=== PATIENT | female | born 1990 | race Caucasian/White ===

== ENCOUNTER → 2019-08-25 09:32 | Outpatient (CLI) | payer OTHER, MEDICAID, SELFPAY | PROVIDERS: Visit Provider Obstetrics & Gynecology | DX: Z34.01 Encounter for supervision of normal first pregnancy, first trimester (principal); Z3A.01 Less than 8 weeks gestation of pregnancy | CPT/HCPCS: 87086 ==

== ENCOUNTER → 2019-08-25 10:33 | Outpatient (CLI) | payer OTHER, MEDICAID, SELFPAY ==
[2019-08-25 11:46] LABS: Add Manual Diff / Slide Review NO; Basophils Absolute Auto 0 /uL (0-100); Basophils Percent Auto 0.5 % (0-2); Eosinophils Absolute Auto 0 /uL (0-450); Eosinophils Percent Auto 0.6 % (2-4); Hematocrit 40.1 % (36-46); Lymphocytes Absolute Auto 1500 /uL (1100-4500); Lymphocytes Percent Auto 21.7 % (25-40); Mean Corpuscular HGB Conc 34.9 % (30-36); Mean Corpuscular Hemoglobin 31.7 PG (26-34); Mean Corpuscular Volume 91.1 fL (80-100); Monocytes Absolute Auto 500 /uL (0-900); Monocytes Percent Auto 7.6 % (3-14); Neutrophils Absolute Auto 4900 /uL (1500-7000); Neutrophils Percent Auto 69.6 % (50-75); Platelet Count 232 X10^3/uL (150-400); Red Cell Distribution Width 13.1 % (11.6-14.8); White Blood Cell Count 7.1 X10^3/uL (4.5-11.0)
[2019-08-25 11:55] LABS: Appearance Urine UA CLEAR; Bilirubin Urine UA NEGATIVE (NEGATIVE); Color Urine UA YELLOW; Glucose Urine UA NEGATIVE (Negative); Ketones Urine UA NEGATIVE (NEGATIVE); Leukocyte Esterase Urine UA NEGATIVE (NEGATIVE); Nitrite Urine UA NEGATIVE (Negative); Occult Blood Urine UA TRACE-LYSED (Negative); Protein Urine UA NEGATIVE (Negative); Urobilinogen Urine UA 0.2 E.U./dL (0.2)
[2019-08-25 13:14] LABS: Urine N gonorrhoeae NOT DETECTED
[2019-08-25 13:15] LABS: Urine Chlamydia NOT DETECTED
[2019-08-26 07:08] LABS: RPR Screen Non Reactive (Non Reactive)
[2019-08-26 08:08] LABS: Varicella IgG Antibody 800 index (Immune >165)
[2019-08-26 21:12] LABS: Hepatitis B Surface Antigen NEGATIVE s/c (NEGATIVE); Rubella Antibody IgG 38.5 IU/mL (>15)
[2019-08-26 21:24] LABS: HIV 1 & 2 Ab/Ag 4th Gen Combo NEGATIVE (NEGATIVE); Hep C Virus Ab w/Reflex Quant NEGATIVE s/c (NEGATIVE)
== END ==
PROVIDERS: Referring Provider Obstetrics & Gynecology; Visit Provider Obstetrics & Gynecology
DX: Z34.01 Encounter for supervision of normal first pregnancy, first trimester (principal); Z3A.01 Less than 8 weeks gestation of pregnancy; Z11.3 Encounter for screening for infections with a predominantly sexual mode of transmission
CPT/HCPCS: 36415; 80055; 81003; 86787; 86803; 86850; 86900; 86901; 87077; 87086; 87389; 87491; 87591

== ENCOUNTER → 2019-10-20 15:32 | Outpatient (CLI) | payer OTHER, MEDICAID, SELFPAY ==
[2019-10-23 09:22] LABS: AFP, Serum 30.4 ng/mL (.); Calc Gestational Age Ultrasound (.); Estriol, Free 0.87 ng/mL (.); Inhibin A, Dimeric 188.43 pg/mL (.); Inhibin A, MoM 1.09 (.); Maternal Ethnicity Caucasian (.); Maternal Weight 162 lbs (.); Number of Fetuses No (.); OSBR Risk 1 IN 8647 (.); Results Report (.); Test Results *Screen Negative* (.); hCG, MoM 0.71 (.); hCG, Serum 38481 mIU/mL (.)
== END ==
PROVIDERS: PCP Nurse Practitioner; Referring Provider Obstetrics & Gynecology; Visit Provider Obstetrics & Gynecology
DX: Z34.02 Encounter for supervision of normal first pregnancy, second trimester (principal); Z36.0 Encounter for antenatal screening for chromosomal anomalies; Z3A.15 15 weeks gestation of pregnancy
CPT/HCPCS: 36415; 82105; 82677; 84702; 86336

== ENCOUNTER → 2019-12-01 14:10 | Outpatient (CLI) | payer OTHER, MEDICAID, SELFPAY ==
--- NOTE | 2019-12-01 14:12 | DI.US.S_ITS ---
PROCEDURE: US OB >= 14 WEEKS FETUS INDICATIONS: ANATOMY OUTSIDE/PRIOR DATING DATA: Last menstrual period (LMP): 07/06/2019 . LMP-based estimated date of delivery (MARITZA): 04/11/2020 . First dating scan (date and location): 08/25/2019 . Estimated date of delivery (MARITZA) from first dating scan: 04/13/2020 . TECHNIQUE: Real-time scanning was performed of the fetus, with image documentation and biometric measurements. COMPARISON: [facility], , OB <= 14 WEEKS FETUS, 09/22/2019, 16:18. [facility], , OB <= 14 WEEKS FETUS, 08/25/2019, 9:48. [facility], , OB >= 14 WEEKS FETUS, 11/17/2019, 16:28. FINDINGS: General: A single living intrauterine gestation is present. Presentation: Transverse. Placenta: Placental position is anterior, without previa. Amniotic fluid index: 14.2 cm, normal range is 5-24 cm. Largest pocket 4.3 heart rate: 168 beats per minute. Maternal cervical canal: 5.8 cm long. biometrics: Biparietal diameter: 4.9 cm 20 weeks 6 days Head circumference: 17.7 cm 20 weeks 1 day Abdominal circumference: 15.6 cm 20 weeks 5 days Femur length: 3.2 cm 20 weeks 0 days Estimated gestational age from initial scan: 20 weeks 6 days Composite gestational age from present scan: 20 weeks 3 days Estimated weight and percentile: 351 g 20 second percentile Measurement variability for biometric dating: +/- 7 days from 14 weeks to 15 weeks 6 days gestation, +/- 10 days from 16 weeks to 21 weeks 6 days gestation, +/- 2 weeks from 22 weeks to 27 weeks 6 days gestation, +/- 3 weeks for 28 weeks gestation or later. weight reference: 4500 g or EFW >90/95% is considered macrosomia or large for gestational age. EFW <10% is small for gestational age. EFW 5% or less is considered intra-uterine growth restriction. Anatomic survey: Neuro: Ventricles are non-dilated at less than 10 mm. Cisterna magna is normal at 3-11 mm. Cerebellum is normal in size and morphology. Nuchal skin fold: Normal at less than 6 mm between 14-21 weeks gestational age. Face: Nose and lips, facial profile are normal. Spine: No evidence for spina bifida. Heart: 4-chambered heart is present, with normal ventricular outflow tracts. Intracardiac echogenic focus is noted within the left ventricle. Diaphragm: Diaphragm is intact. Stomach: Left-sided stomach is present. Kidneys: No hydronephrosis. Normal is less than 5 mm in 2nd trimester, less than 7 mm in 3rd trimester. Cord: 3-vessel cord has orthotopic insertion. Bladder: Normal in size. Extremities: All 4 extremities identified. IMPRESSION: 1. Single live into with ultrasound gestational age today of 20 weeks 3 days compared to 20 weeks 6 days from initial ultrasound. Ultrasound MARITZA is unchanged 04/13/2020. 2. Intracardiac echogenic focus. This is overall nonspecific. Recommend interval imaging follow-up as well as denoted testing if clinically appropriate. Dictated by: Emmy Marie M.D. on 12/02/2019 at 14:55 Approved by: Emmy Marie M.D. on 12/02/2019 at 15:14
== END ==
PROVIDERS: PCP Nurse Practitioner; Referring Provider Obstetrics & Gynecology; Visit Provider Obstetrics & Gynecology
DX: Z34.02 Encounter for supervision of normal first pregnancy, second trimester (principal); Z3A.20 20 weeks gestation of pregnancy
CPT/HCPCS: 76811

== ENCOUNTER → 2020-01-05 10:01 | Outpatient (CLI) | payer OTHER, MEDICAID, SELFPAY ==
[2020-01-05 12:12] LABS: Hematocrit 37.2 % (36-46); Hemoglobin 13.1 g/dL (12.0-16.0)
[2020-01-05 12:57] LABS: GTT (PREG) 1 Hour PP 50gm Dose 127 mg/dL (76-139)
[2020-01-05 13:42] LABS: Vitamin B12 Reflex MMA if <400 252 pg/mL (239-931)
[2020-01-08 00:31] LABS: Methylmalonic Acid,Serum 53 nmol/L (0-378)
== END ==
PROVIDERS: PCP Nurse Practitioner; Referring Provider Obstetrics & Gynecology; Visit Provider Obstetrics & Gynecology
DX: Z34.02 Encounter for supervision of normal first pregnancy, second trimester (principal); Z3A.26 26 weeks gestation of pregnancy
CPT/HCPCS: 36415; 82607; 82950; 83921; 85014; 85018

== ENCOUNTER 2020-03-02 11:03 | Outpatient (CLI) | payer OTHER, MEDICAID, SELFPAY ==
[2020-03-02 11:42] LABS: Add Manual Diff / Slide Review NO; Basophils Absolute Auto 100 /uL (0-100); Basophils Percent Auto 0.7 % (0-2); Eosinophils Absolute Auto 200 /uL (0-450); Eosinophils Percent Auto 1.8 % (2-4); Hematocrit 37.7 % (36-46); Hemoglobin 12.9 g/dL (12.0-16.0); Lymphocytes Absolute Auto 2000 /uL (1100-4500); Lymphocytes Percent Auto 19.9 % (25-40); Mean Corpuscular HGB Conc 34.1 % (30-36); Monocytes Absolute Auto 500 /uL (0-900); Monocytes Percent Auto 5.5 % (3-14); Neutrophils Absolute Auto 7100 /uL (1500-7000); Neutrophils Percent Auto 72.1 % (50-75); Platelet Count 209 X10^3/uL (150-400); Red Blood Cell Count 4.14 X10^6/uL (4.0-5.2); Red Cell Distribution Width 12.8 % (11.6-14.8); White Blood Cell Count 9.8 X10^3/uL (4.5-11.0)
[2020-03-02 11:54] LABS: Aspartate Aminotransferase 21 IU/L (14-36); BUN Creatinine Ratio 13.5 (6-22); Blood Urea Nitrogen 7 mg/dL (7-17); Estimated Glomerular Filt Rate > 60.0 mL/min (>60); Uric Acid 4.7 mg/dL (2.5-6.2)
== END 2020-03-02 12:44 | disposition home or self-care (01) ==
LOC: LABOR 12:37 → OB 03-04 08:41
PROVIDERS: PCP Nurse Practitioner; Referring Provider Obstetrics & Gynecology; Visit Provider Obstetrics & Gynecology
DX: O13.3 Gestational [pregnancy-induced] hypertension without significant proteinuria, third trimester (principal); Z3A.34 34 weeks gestation of pregnancy
CPT/HCPCS: 36415; 59025; 59050; 84450; 84550; 85025; G0378; G0379

== ENCOUNTER → 2020-03-10 14:00 | Outpatient (CLI) | payer OTHER, MEDICAID, SELFPAY ==
[2020-03-11 11:02] LABS: Strep Grp B PCR NEG for Grp B Strep
== END ==
PROVIDERS: PCP Nurse Practitioner; Visit Provider Obstetrics & Gynecology
DX: Z34.03 Encounter for supervision of normal first pregnancy, third trimester (principal); Z3A.35 35 weeks gestation of pregnancy
CPT/HCPCS: 87653

== ENCOUNTER 2020-03-10 14:18 | Outpatient (CLI) | payer OTHER, MEDICAID, SELFPAY | END 2020-03-10 15:26 | disposition home or self-care (01) | LOC: LABOR 14:33 → OB 03-11 07:43 | PROVIDERS: PCP Nurse Practitioner; Referring Provider Obstetrics & Gynecology; Visit Provider Obstetrics & Gynecology | DX: O26.893 Other specified pregnancy related conditions, third trimester (principal); R03.0 Elevated blood-pressure reading, without diagnosis of hypertension; Z3A.35 35 weeks gestation of pregnancy | CPT/HCPCS: 59025; 87653; G0378; G0379 ==

== ENCOUNTER 2020-03-17 13:08 | Outpatient (CLI) | payer OTHER, MEDICAID, SELFPAY ==
--- NOTE | 2020-03-18 14:00 | CM.DPNOTE ---
Faxed clinicals to [facility] on 03/18/20 and received fax confirmation. Liliana Hamilton CM Asst.
== END 2020-03-17 14:11 | disposition home or self-care (01) ==
LOC: LABOR 14:06 → OB 03-18 11:54
PROVIDERS: PCP Nurse Practitioner; Referring Provider Obstetrics & Gynecology; Visit Provider Obstetrics & Gynecology
DX: O13.3 Gestational [pregnancy-induced] hypertension without significant proteinuria, third trimester (principal); Z3A.36 36 weeks gestation of pregnancy
CPT/HCPCS: 59025; G0378; G0379

== ENCOUNTER 2020-03-24 12:13 | Outpatient (CLI) | payer OTHER, MEDICAID, SELFPAY ==
--- NOTE | 2020-03-28 10:28 | P.TNLD_ITS ---
Visit Information Visit Information Date of evaluation: 03/28/20 Primary OB Provider: Ofelia Estrella On-call OB Provider: Nakia Porter Reason for Evaluation: Yes non-stress test Comments/Additional reasons for admission: 29YO G1 @ 38wks here for scheduled NST for GHTN on labetalol 100mg BID. +FM. No cramping, VB or LOF. Vital Signs Vital Signs: Serial BPs: 132/95, 129/88, 126/86 HR: 85bpm T: 97.7F Temporal PFSH Medical History Anxiety Depression Hyperemesis gravidarum Kidney stones Nausea Ovarian cyst Scoliosis Stomach pain Family History Mother Family estrangement No known health problems Depression Bipolar 1 disorder Mental health disorder Father Obesity Grandfather No known health problems Family estrangement Abusive behavior Grandmother No known health problems Family estrangement Grandfather Diabetes mellitus Hyperlipidemia Hypertension Myocardial infarction Obesity Heart valve replaced Grandmother Leukemia, acute Family/Other Cancer Breast cancer Brother Extra toe Social History marital status: household members: spouse pets and animals: Yes (X 2 dogs) education level: vocational occupational status: employed current occupational exposures/hazards: Yes Previous occupational history: Hairdresser special kamran needs: No Smoking Status: Never smoker second hand exposure: No alcohol intake: former substance use type: does not use and marijuana Review of Systems Review of Systems ROS: Yes All systems reviewed with the patient and are negative except as otherwise documented Exam Vital Signs (past 8 hours): see above Presentation: vertex Evaluation Evaluation Baseline heart rate: 135 Variability: Moderate (11-25) monitor accelerations: Present monitor decelerations: Absent Status: Category l Comments: CE deferred Diagnosis, Plan/Disposition Final Diagnosis (1) Gestational hypertension: Status: Acute Problem details: BP stable on labetalol w/ medical IOL tentatively moved up from 03/31/[address] [facility]. Will confirm w/ and then Pt to arrive at 7pm for cervical ripening.
== END 2020-03-24 13:08 | disposition home or self-care (01) ==
LOC: LABOR 12:52 → OB 03-25 08:50
PROVIDERS: PCP Nurse Practitioner; Referring Provider Obstetrics & Gynecology; Visit Provider Obstetrics & Gynecology
DX: Z34.03 Encounter for supervision of normal first pregnancy, third trimester (principal); Z3A.37 37 weeks gestation of pregnancy
CPT/HCPCS: 59025; G0378; G0379

== ENCOUNTER 2020-03-28 10:23 | Outpatient (CLI) | payer OTHER, MEDICAID, SELFPAY | END 2020-03-28 10:29 | disposition home or self-care (01) | LOC: LABOR 10:26 → OB 03-30 07:48 | PROVIDERS: PCP Nurse Practitioner; Referring Provider Nurse Practitioner Obstetrics & Gynecology; Visit Provider Nurse Practitioner Obstetrics & Gynecology | DX: O13.3 Gestational [pregnancy-induced] hypertension without significant proteinuria, third trimester (principal); Z3A.37 37 weeks gestation of pregnancy | CPT/HCPCS: 59025; G0378; G0379 ==

== ENCOUNTER 2020-03-29 18:08 | Inpatient (IN) | payer OTHER, MEDICAID, SELFPAY ==
[2020-03-29 18:44] VITALS: BP 134/99
[2020-03-29] MEDS: DINOPROSTONE VAG (CERVIDIL) 10 MG VAG (19:31)
[2020-03-29 19:46] LABS: Add Manual Diff / Slide Review NO; Basophils Absolute Auto 100 /uL (0-100); Eosinophils Absolute Auto 200 /uL (0-450); Eosinophils Percent Auto 1.7 % (2-4); Hematocrit 35.7 % (36-46); Hemoglobin 12.2 g/dL (12.0-16.0); Lymphocytes Absolute Auto 2500 /uL (1100-4500); Mean Corpuscular Volume 91.2 fL (80-100); Monocytes Absolute Auto 500 /uL (0-900); Monocytes Percent Auto 4.8 % (3-14); Neutrophils Absolute Auto 7900 /uL (1500-7000); Neutrophils Percent Auto 70.5 % (50-75); Platelet Count 202 X10^3/uL (150-400); Red Blood Cell Count 3.92 X10^6/uL (4.0-5.2); Red Cell Distribution Width 12.9 % (11.6-14.8); White Blood Cell Count 11.2 X10^3/uL (4.5-11.0)
[2020-03-29] MEDS: ACETAMINOPHEN 325 MG TABLET 650 MG PO (19:57)
[2020-03-29 20:02] LABS: Aspartate Aminotransferase 21 IU/L (14-36); BUN Creatinine Ratio 13.5 (6-22); Blood Urea Nitrogen 7 mg/dL (7-17); Estimated Glomerular Filt Rate > 60.0 mL/min (>60)
[2020-03-29 20:18] LABS: COVID19 -Nasal RAPID Negative (Negative)
[2020-03-29] MEDS: ZOLPIDEM 5 MG TABLET PO (20:58)
[2020-03-29] MEDS: CALCIUM CARBONATE 500 MG TAB 1000 MG PO (23:49)
[2020-03-30] MEDS: ZOLPIDEM 5 MG TABLET PO (01:25)
[2020-03-30] MEDS: LACTATED RINGERS 1,000 ML 125 ML IV (08:43)
[2020-03-30] MEDS: OXYTOCIN PREMIX 30 UNIT/500 ML PLAST..BAG IV (08:44)
[2020-03-30] MEDS: ONDANSETRON 4 MG/2 ML INJ IV ×2 (12:00→18:00)
[2020-03-30] MEDS: FENT 2MCG/ML BUPIV 0.125% EPI 200 MCG/100 ML PLAST..BAG 12 MCG EPIDURAL ×2 (17:15→23:14)
--- NOTE | 2020-03-30 20:24 | P.HPOB_ITS ---
OB HPI Date/Time Date of admission: 03/29/20 Date Patient Seen: 03/30/20 Time Patient Seen: 07:50 History of Present Condition Chief complaint: : 1 Para: 0 Estimated Date of Delivery: 04/11/20 Estimated Gestational Age (weeks): 38+2 Narrative: Fátima Beltrán is a 29 year old female 1 para 0 at 38-,2/7 weeks gestation with gestational hypertension. Patient is status post Cervidil last night. Indications Indication for induction OB: other (Gestational hypertension) History of Present care: initiated at week # (7), number of visits (12) and pounds weight gain (54) Dating criteria: LMP confirmed by 1st trimester US Ultrasounds: normal 1st trimester US and normal mid trimester US Obstetrical complications: gestational hypertension Medical complications: none Preadmission Labs Blood type: O (+) positive -: Antibody screen: negative, GBS status: negative, HBsAG: negative, HIV: negative and RPR/VDLR: negative -: Chlamydia screen: not detected and Gonorrhea screen: not detected -: Rubella: immune and Varicella: immune HCT: 35.7 HCAB: negative PAP: Normal Quad screen: Normal Urine: Lactobacillus 1 hr GTT: 127 Evaluation Evaluation Baseline heart rate: 135 Variability: Moderate (11-25) monitor accelerations: Present monitor decelerations: Absent Contraction Frequency (minutes): 5 Uterine Contraction Intensity: Mild Status: Category l Cervical dilation (cm): 1 Cervical effacement (%): 85 station: -1 Laboratory results: Laboratory Tests 03/29/20 03/29/20 03/29/20 18:50 18:55 18:55 WBC 11.2 H RBC 3.92 L Hgb 12.2 Hct 35.7 L MCV 91.2 MCH 31.0 MCHC 34.0 RDW 12.9 Plt Count 202 Neut % (Auto) 70.5 Lymph % (Auto) 22.0 L [place] % (Auto) 4.8 Eos % (Auto) 1.7 L Baso % (Auto) 1.0 Neut # (Auto) 7900 H Lymph # (Auto) 2500 [place] # (Auto) 500 Eos # (Auto) 200 Baso # (Auto) 100 BUN Creatinine Estimated GFR BUN/Creatinine Ratio Uric Acid AST SARS-CoV-2 (PCR) Negative Blood Type O Positive Antibody Screen Negative 03/29/20 18:55 WBC RBC Hgb Hct MCV MCH MCHC RDW Plt Count Neut % (Auto) Lymph % (Auto) [place] % (Auto) Eos % (Auto) Baso % (Auto) Neut # (Auto) Lymph # (Auto) [place] # (Auto) Eos # (Auto) Baso # (Auto) BUN 7 Creatinine 0.52 Estimated GFR > 60.0 BUN/Creatinine Ratio 13.5 Uric Acid 6.0 AST 21 SARS-CoV-2 (PCR) Blood Type Antibody Screen [facility] Medical History Anxiety Depression Hyperemesis gravidarum Kidney stones Nausea Ovarian cyst Scoliosis Stomach pain Family History Mother Family estrangement No known health problems Depression Bipolar 1 disorder Mental health disorder Father Obesity Grandfather No known health problems Family estrangement Abusive behavior Grandmother No known health problems Family estrangement Grandfather Diabetes mellitus Hyperlipidemia Hypertension Myocardial infarction Obesity Heart valve replaced Grandmother Leukemia, acute Family/Other Cancer Breast cancer Brother Extra toe Social History marital status: household members: spouse pets and animals: Yes (X 2 dogs) education level: vocational occupational status: employed current occupational exposures/hazards: Yes Previous occupational history: Hairdresser special kamran needs: No Smoking Status: Never smoker second hand exposure: No alcohol intake: former substance use type: does not use and marijuana Meds Home Medications and Allergies Home Medications Medication Instructions Recorded Confirmed Type mecobalamin (vitamin B12) 10,000 10,000 mcg IM .28 days each 08/18/19 03/29/20 History mcg solution for injection ondansetron 4 mg disintegrating 4 mg PO Q6H #20 tab 08/18/19 03/29/20 Rx tablet prenat.vits,carmen,eyx-bmxm-mjdsb 1 tab PO DAILY 08/18/19 03/29/20 History metoclopramide HCl 10 mg tablet 10 mg PO Q6H PRN #20 tab 10/20/19 03/29/20 Rx lidocaine 4 % topical gel 1 applictn TOP BID-QID PRN #10 gram 11/17/19 03/29/20 Rx promethazine 25 mg tablet 25 mg PO Q4-6H PRN #20 tab 11/17/19 03/29/20 Rx pantoprazole 20 mg tablet,delayed 20 mg PO DAILY #30 tab 02/16/20 03/29/20 Rx release labetalol 100 mg tablet 100 mg PO BID #60 tab 03/18/20 03/29/20 Rx Allergies Allergy/AdvReac Type Severity Reaction Status Date / Time No Known Drug Allergies Allergy Verified 03/17/20 11:51 Exam Vital Signs (past 8 hours): Generally: Patient is sitting up in bed, no acute distress Lungs: Clear to auscultation bilaterally Cardiovascular: Regular rate and rhythm Fundal height: 39 cm Estimated weight: 7-1/2 lb Extremities: 1+ edema, 1+ DTRs Objective Labs Result Diagrams: 03/29/20 18:55 03/29/20 18:55 Labs: Laboratory Results - last 24 hr 03/29/20 03/29/20 18:55 18:55 BUN 7 Creatinine 0.52 Estimated GFR > 60.0 BUN/Creatinine Ratio 13.5 Uric Acid 6.0 AST 21 Blood Type O Positive Antibody Screen Negative Assessment and Plan Assessment and Plan Assessment and Plan narrative: Assessment: 29-year-old 1 para 0 at 38-,2/7 weeks gestation with gestational hype rtension Status post Cervidil for cervical ripening Plan: Pitocin per protocol 2 Epidural as necessary Artificial rupture of membranes when able Time Spent with Patient Total time spent with greater than 50% in coordination of care (as documented) a t patient's floor/unit and/or counseling patient:: 15-24 minutes
--- NOTE | 2020-03-30 20:33 | PM.OBPNLAB ---
Date/Time Date Patient Seen: 03/30/20 Time Patient Seen: 13:15 Pain Control Pain control: epidural Pelvic Exam Dilation (cm): 1 Effacement (%): 85 station: -1 Amniotic membrane status: Intact Contractions Pitocin rate (mU/min): 9 Contraction frequency (min): 3 Contraction duration (min): 1 Contraction pattern: Regular Contraction intensity: Mild Status status: Category l Heart Rate Baseline: 145 Monitor Accelerations: Present Monitor Decelerations: Absent Monitor Variability: Moderate Assessment and Plan Assessment: induction ongoing Plan: other Comments: AROM with copious clear amniotic fluid
--- NOTE | 2020-03-30 20:53 | PM.OBPNLAB ---
Date/Time Date Patient Seen: 03/30/20 Time Patient Seen: 20:54 Pain Control Pain control: epidural Pelvic Exam Dilation (cm): 6 Effacement (%): 100 station: +1 Amniotic membrane status: Ruptured Contractions Monitor mode: External Pitocin rate (mU/min): 18 Contraction frequency (min): 3 Contraction duration (min): 1 Contraction pattern: Regular Contraction intensity: Mild Status status: Category l Heart Rate Baseline: 125 Monitor Accelerations: Present Monitor Decelerations: Absent Monitor Variability: Moderate Comments: Pseudosinusoidal for a while Assessment and Plan Assessment: active labor and induction ongoing Plan: continuous present management Comments: Position changes
[2020-03-30] MEDS: METOCLOPRAMIDE 10 MG/2 ML INJ IV (21:01)
[2020-03-30] MEDS: LABETALOL 100 MG TABLET PO (21:01)
[2020-03-30] MEDS: PANTOPRAZOLE 20 MG TABLET PO (21:01)
[2020-03-30] MEDS: LACTATED RINGERS 1,000 ML 100 ML IV (23:15)
--- NOTE | 2020-03-31 00:56 | PM.OBPRVD ---
Events: Induced HTN and Labor Induction Labor & Delivery Delivery date: 03/31/20 Cervical ripening method: per Cervidil protocol Induction method: per pitocin protocol Delivery augmentation: rupture of membranes Delivery monitor: external FHT and external uterine Route of delivery: Episiotomy description: None L&D Laceration Description: Perineal - 1st Degree and Vaginal - 1st Degree Delivery repair: chromic Estimated blood loss (mL): 100 Anesthesia Type: Epidural Complications: None Narrative: Patient complete and pushed for 22 minutes. At 12:26 a.m., a live male infant delivered spontaneously in the MARCY presentation over an intact perineum. No nuchal cord. The remainder of the body delivered without difficulty and was placed on mom's abdomen. After the cord stopped pulsing, the cord was double clamped and cut. Cord bloods were obtained. Pitocin was given in the IV fluids. At 12:43 a.m., the placenta delivered intact with a three-vessel cord. Fundus was massaged to firm. A first-degree vaginal/perineal laceration was repaired with 3-0 chromic. Hemostasis was achieved. Apgars 9 at 1 minute and 9 at 5 minutes. Epidural analgesia. . Mom and infant stable to recovery. Baby 1: gender: Male Presentation: vertex Position: Left Occiput Anterior Placenta delivery description: Spontaneous Cord Vessel Description: 3 Vessels and Clamped/Cut score (1 min): 9 score (5 min): 9 Plan for aftercare: Routine care
[2020-03-31 08:24] LABS: Hematocrit 37.6 % (36-46)
[2020-03-31] MEDS: IBUPROFEN 600 MG TABLET PO ×3 (09:12→21:56)
[2020-03-31] MEDS: ACETAMINOPHEN 325 MG TABLET 650 MG PO ×3 (09:12→21:55)
[2020-03-31 09:23] VITALS: BP 140/96; PULSE 88
[2020-03-31] MEDS: LABETALOL 100 MG TABLET PO ×2 (09:23→20:04)
[2020-03-31] MEDS: DOCUSATE 100 MG CAPSULE PO (09:25)
--- NOTE | 2020-03-31 18:07 | PM.OBPN.1 ---
Subjective - OB Subjective Patient comments: no complaints and pain well controlled baby status: doing well and nursing well feeding status: exclusively breast feeding Date Patient Seen: 03/31/20 Time Patient Seen: 13:10 Interval history: Patient is day # 1 status post spontaneous vaginal delivery after Cervidil cervical ripening and Pitocin induction of labor secondary to gestational hypertension. Exam Vital Signs (past 8 hours): Generally: Patient is sitting up in bed, holding infant, no acute distress Fundus: Firm at U -1 Extremities: 1+ edema, negative Homans Objective Labs Result Diagrams: 03/31/20 08:19 Labs: Laboratory Results - last 24 hr 03/31/20 08:19 Hgb 13.0 Hct 37.6 Assessment & Plan Plan day: 1 plan OB: routine care Time Spent With Patient Time: Total time spent is greater than 50% in coordination of care (as documented) at patient's floor/unit and/or counseling patient: Time with patient: 15-24 minutes
[2020-03-31 20:04] VITALS: BP 152/97; PULSE 88
[2020-04-01] MEDS: IBUPROFEN 600 MG TABLET PO ×2 (04:08→09:09)
[2020-04-01] MEDS: ACETAMINOPHEN 325 MG TABLET 650 MG PO ×2 (04:08→09:09)
[2020-04-01 04:26] VITALS: BP 145/101; PULSE 79
[2020-04-01] MEDS: LANOLIN OINT 7 GM 1 APPLIC TOP (05:26)
[2020-04-01 09:08] VITALS: BP 143/93; PULSE 80
[2020-04-01] MEDS: DERMOPLAST SPRAY 20% 60 ML 1 SPRAY TOP (09:08)
[2020-04-01] MEDS: LABETALOL 100 MG TABLET PO (09:08)
[2020-04-01] MEDS: DOCUSATE 100 MG CAPSULE PO (09:08)
[2020-04-01 19:17] VITALS: BP 143/93; PULSE 80; RESP 17; TEMP 37
--- NOTE | 2020-04-12 01:15 | P.DS_ITS ---
Discharge Providers Provider Date of admission: 03/29/20 18:08 Discharge Date: 04/01/20 Primary care physician: SPENCER Moon Consults: 04/01/20 04:47 Consult to Ssrs Report Developer Routine Comment: Discharge provider: Ofelia Estrella MD Summary Hospital Course Date Patient Seen: 04/01/20 Time Patient Seen: 13:30 Diagnoses: 39 weeks gestation Cervical ripening Induction of labor Spontaneous vaginal delivery Gestational hypertension Gestational hypertension Hospital Course: Patient is a 29-year-old 1 para 1 who presented on March 29, 2020 for cervical ripening. On March 30, 2020 induction of labor with Pitocin was started. She received an epidural for pain management. Artificial rupture membranes was performed. She progressed to complete dilation and had a spontaneous vaginal delivery without complication. Her course was unremarkable. Peripartum Data Infant Delivery Method: Natural Vaginal Laceration Description: Perineal - 1st Degree and Vaginal - 1st Degree Episiotomy description: None Procedures: Cervidil cervical ripening Induction of labor with Pitocin Artificial rupture of membranes Spontaneous vaginal delivery 1st degree vaginal/perineal laceration repair complications: none [place] 1: Gender: Male Disposition of : home Status at Discharge Cognitive/behavioral status at discharge: oriented Functional status at discharge: independent ambulation Overall status at discharge: patient is progressing back to baseline Time Spent with Patient Time attestation: Total time spent providing and/or coordinating discharge services: Time spent: Less than 30 minutes Objective Labs Result Diagrams: 03/31/20 08:19 Exam Vital Signs (past 8 hours): Generally: Patient is sitting up in bed, no acute distress Fundus: Firm at U -1 Extremities: Negative Homans, 1+ edema Discharge Plan Discharge Plan Patient Disposition: Home Provider Discharge Comment: Call with fever, chills, or bleeding vaginally more than a pad in an hour Ibuprofen 600 mg every 6 hours as needed for cramping Colace (Docusate) 100 mg a day Discharge orders & Medications Prescriptions: New oxycodone 5 mg tablet 5 mg PO Q6H PRN (Reason: pain) Qty: 7 RF: 0 Continued prenat.vits,carmen,sax-gowd-okbpi Tablet 1 tab PO DAILY RF: 0 mecobalamin (vitamin B12) 10,000 mcg recon soln 10,000 mcg IM .28 days RF: 0 Discontinued labetalol 100 mg tablet 100 mg PO BID Qty: 60 RF: 1 ondansetron 4 mg tablet,disintegrating 4 mg PO Q6H Qty: 20 RF: 1 promethazine 25 mg tablet 25 mg PO Q4-6H PRN (Reason: nausea and vomiting) Qty: 20 RF: 3 lidocaine 4 % gel 1 applictn TOP BID-QID PRN (Reason: pain) Qty: 10 RF: 3 pantoprazole [Protonix] 20 mg tablet,delayed release (DR/EC) 20 mg PO DAILY Qty: 30 RF: 2 metoclopramide HCl [Reglan] 10 mg tablet 10 mg PO Q6H PRN (Reason: nausea and vomiting) Qty: 20 RF: 0 Follow up/Referrals: Lizeth Patel ARNP [Primary Care Provider] - Ofelia Estrella MD [Physician] - 6 Weeks Diet/Activity/Treatments Activity: No intercourse until 6 wk visit Skin/Wound/Dressing Care Report to your healthcare provider any signs of infection, such as:: chills, fev er, increased pain and unusual drainage Visit Report/Discharge Packet Instructions: DI for Labor and Delivery, Vaginal Stand Alone Forms: Discharge: Care Discharge Data Primary Care Provider: Lizeth Patel
== END 2020-04-01 20:00 | disposition home or self-care (01) | DRG 560 ==
PROVIDERS: Admitting Provider Obstetrics & Gynecology; PCP Nurse Practitioner; Referring Provider Obstetrics & Gynecology; Visit Provider Obstetrics & Gynecology
DX: O13.4 Gestational [pregnancy-induced] hypertension without significant proteinuria, complicating childbirth (principal); Z3A.38 38 weeks gestation of pregnancy; Z37.0 Single live birth; O70.0 First degree perineal laceration during delivery; Z20.822 Contact with and (suspected) exposure to COVID-19
CPT/HCPCS: 01967; 36415; 59025; 59050; 59200; 59409; 84450; 84550; 85014; 85018; 85025; 86850; 86900; 86901; 87635; C9803; G0379; J2405; J2590; J2765

== ENCOUNTER → 2024-03-10 10:18 | Outpatient (CLI) | payer OTHER, SELFPAY ==
[2024-03-10 11:44] LABS: Blood Urea Nitrogen 8 mg/dL (7-17)
[2024-03-10 11:45] LABS: Alanine Aminotransferase 18 IU/L (<35); Aspartate Aminotransferase 24 IU/L (14-36); BUN Creatinine Ratio 13.8 (6-22); Estimated Glomerular Filt Rate > 60 mL/min (>60); Uric Acid 3.5 mg/dL (2.5-6.2)
[2024-03-10 11:51] LABS: Natera Collection Specimen Collected
[2024-03-10 12:19] LABS: Add Manual Diff / Slide Review NO; Basophils Absolute Auto 100 /uL (0-100); Basophils Percent Auto 0.8 % (0-2); Eosinophils Absolute Auto 200 /uL (0-450); Eosinophils Percent Auto 1.8 % (2-4); Hematocrit 40.5 % (36-46); Hemoglobin 14.1 g/dL (12.0-16.0); Lymphocytes Absolute Auto 1900 /uL (1100-4500); Lymphocytes Percent Auto 21.8 % (25-40); Mean Corpuscular HGB Conc 34.7 % (30-36); Mean Corpuscular Hemoglobin 31.1 PG (26-34); Mean Corpuscular Volume 89.6 fL (80-100); Monocytes Absolute Auto 500 /uL (0-900); Monocytes Percent Auto 5.7 % (3-14); Neutrophils Absolute Auto 6000 /uL (1500-7000); Neutrophils Percent Auto 69.9 % (50-75); Platelet Count 282 X10^3/uL (150-400); Red Blood Cell Count 4.52 X10^6/uL (4.0-5.2); Red Cell Distribution Width 13.1 % (11.6-14.8); White Blood Cell Count 8.6 X10^3/uL (4.5-11.0)
[2024-03-10 15:42] LABS: HIV 1 & 2 Ab/Ag 4th Gen Combo NEGATIVE (NEGATIVE); Hep C Virus Ab w/Reflex Quant NEGATIVE s/c (NEGATIVE); Hepatitis B Surface Antigen NEGATIVE s/c (NEGATIVE); Rubella Antibody IgG 51.1 IU/mL (>15)
[2024-03-11 05:10] LABS: RPR Screen Non Reactive (Non Reactive)
[2024-03-11 05:41] LABS: Varicella IgG Antibody Reactive (Non Reactive)
== END ==
PROVIDERS: Specialist; PCP Nurse Practitioner; Referring Provider Obstetrics & Gynecology; Visit Provider Obstetrics & Gynecology
DX: Z34.80 Encounter for supervision of other normal pregnancy, unspecified trimester (principal); Z3A.10 10 weeks gestation of pregnancy
CPT/HCPCS: 36415; 80055; 82565; 84450; 84460; 84520; 84550; 86787; 86803; 86850; 86900; 86901; 87086; 87389

== ENCOUNTER → 2024-04-03 15:18 | Outpatient (CLI) | payer OTHER, SELFPAY ==
[2024-04-03 16:32] LABS: Alanine Aminotransferase 14 IU/L (<35); Albumin 3.7 g/dL (3.5-5.0); Albumin Globulin Ratio 1.4 (1.0-2.8); Alkaline Phosphatase 58 U/L (38-126); Aspartate Aminotransferase 22 IU/L (14-36); BUN Creatinine Ratio 13.1 (6-22); Bilirubin Total 0.3 mg/dL (0.2-1.3); Blood Urea Nitrogen 8 mg/dL (7-17); Calcium 9.2 mg/dL (8.4-10.2); Carbon Dioxide 24 mmol/L (22-32); Chloride 105 mmol/L (98-107); Estimated Glomerular Filt Rate > 60 mL/min (>60); Globulin 2.7 g/dL (1.7-4.1); Glucose 93 mg/dL (70-100); HEMOLYSIS < 15 (0-50); Potassium 4.5 mmol/L (3.4-5.1); Sodium 135 mmol/L (137-145); Total Protein 6.4 g/dL (6.3-8.2)
[2024-04-03 16:48] LABS: Free T4, Direct Thyroxine 0.77 ng/dL (0.78-2.19)
== END ==
LOC: LAB 15:18
PROVIDERS: PCP Nurse Practitioner; Referring Provider Obstetrics & Gynecology; Visit Provider Obstetrics & Gynecology
DX: O21.0 Mild hyperemesis gravidarum (principal)
CPT/HCPCS: 36415; 80053; 84439; 84443

== ENCOUNTER → 2024-05-01 10:31 | Outpatient (CLI) | payer OTHER, SELFPAY ==
[2024-05-03 19:39] LABS: AFP Value 30.9 ng/mL (.); Gest Age on Col Date 17.6 weeks (.); Insulin Dep Diabetes No (.); OSBR Risk 1IN 10000 (.); Results Report (.); Test Results *Screen Negative* (.)
[2024-05-05 07:56] LABS: PDF SEE SCANNED RESULTS
== END ==
LOC: LAB 10:32
PROVIDERS: PCP Nurse Practitioner; Referring Provider Obstetrics & Gynecology; Visit Provider Obstetrics & Gynecology
DX: Z34.92 Encounter for supervision of normal pregnancy, unspecified, second trimester (principal); Z3A.17 17 weeks gestation of pregnancy
CPT/HCPCS: 36415; 82105

== ENCOUNTER → 2024-05-22 14:42 | Outpatient (CLI) | payer OTHER, SELFPAY ==
--- NOTE | 2024-05-22 14:43 | DI.US.S_ITS ---
PROCEDURE: US OB >= 14 WEEKS FETUS INDICATIONS: 20 Week anatomy scan OUTSIDE/PRIOR DATING DATA: Last menstrual period (LMP): 12/30/2023. LMP-based estimated date of delivery (MARITZA): 10/05/2024. First dating scan (date and location): 02/29/2024. Estimated date of delivery (MARITZA) from first dating scan: 10/05/2024. The calculations are made using the working MARITZA of 10/05/2024. TECHNIQUE: Real-time scanning was performed of the fetus, with image documentation and biometric measurements. Endovaginal scanning: No COMPARISON: [facility], , OB >= 14 WEEKS FETUS, 03/24/2020, 12:03. FINDINGS: General: A single living intrauterine gestation is present. Presentation: Vertex. Placenta: Placental position is fundal , without previa. Amniotic fluid index: 16.8 cm, normal range is 5-24 cm. Single deepest vertical pocket is 5.1 cm. heart rate: 144 beats per minute. Maternal cervical canal: 4.4 cm long. Normal lower limit is 2.5 cm. biometrics: Biparietal diameter: 4.9 cm, 20 week 6 day Head circumference: 18.4 cm, 20 week 6 day Abdominal circumference: 15.6 cm, 20 week 6 day Femur length: 3.5 cm, 20 week 6 day Clinically estimated gestational age: 20 week 4 day Composite gestational age from present scan: 20 week 6 day Estimated weight and percentile: 381 g, 60 percentile Anatomic survey: Neuro: Ventricles are non-dilated at less than 10 mm. Cisterna magna is normal at 3-11 mm. Cerebellum is normal in size and morphology. Nuchal skin fold: Normal at less than 6 mm between 14-21 weeks gestational age. Face: Nose and lips, facial profile are normal. Spine: No evidence for spina bifida. Heart: 4-chambered heart is present, with normal ventricular outflow tracts. Diaphragm: Diaphragm is intact. Stomach: Left-sided stomach is present. Kidneys: No hydronephrosis. Normal is less than 5 mm in 2nd trimester, less than 7 mm in 3rd trimester. Cord: 3-vessel cord has orthotopic insertion. Bladder: Normal in size. Extremities: All 4 extremities identified. IMPRESSION: Single live intrauterine consistent with 20 week 6 day gestation. Normal anatomic survey Approved by: Rodrigo Ridley M.D. on 05/22/2024 at 17:46
== END ==
LOC: US 14:43
PROVIDERS: PCP Nurse Practitioner; Referring Provider Obstetrics & Gynecology; Visit Provider Obstetrics & Gynecology
DX: Z36.89 Encounter for other specified antenatal screening (principal); Z3A.20 20 weeks gestation of pregnancy
CPT/HCPCS: 76811

== ENCOUNTER → 2024-06-26 11:35 | Outpatient (CLI) | payer OTHER, SELFPAY ==
[2024-06-26 13:04] LABS: Hematocrit 36.5 % (36-46); Hemoglobin 12.8 g/dL (12.0-16.0)
[2024-06-26 15:23] LABS: GTT (PREG) 1 Hour PP 50gm Dose 125 mg/dL (76-139)
== END ==
LOC: LAB 11:36
PROVIDERS: Specialist; PCP Nurse Practitioner; Referring Provider Obstetrics & Gynecology; Visit Provider Obstetrics & Gynecology
DX: Z34.93 Encounter for supervision of normal pregnancy, unspecified, third trimester (principal); Z3A.26 26 weeks gestation of pregnancy
CPT/HCPCS: 36415; 82950; 85014; 85018

== ENCOUNTER 2024-07-30 10:32 | Outpatient (CLI) | payer OTHER, SELFPAY | END 2024-07-30 11:28 | disposition home or self-care (01) | LOC: OB 15:31 | PROVIDERS: PCP Nurse Practitioner; Referring Provider Obstetrics & Gynecology; Visit Provider Obstetrics & Gynecology | DX: O42.913 Preterm premature rupture of membranes, unspecified as to length of time between rupture and onset of labor, third trimester (principal); Z3A.30 30 weeks gestation of pregnancy | CPT/HCPCS: 59025; 84112; G0378; G0379 ==

== ENCOUNTER 2024-09-09 10:05 | Observation (INO) | payer OTHER, SELFPAY ==
[2024-09-09 11:18] LABS: Add Manual Diff / Slide Review NO; Hematocrit 33.7 % (36-46); Hemoglobin 11.4 g/dL (12.0-16.0); Lymphocytes Absolute Auto 1700 /uL (1100-4500); Mean Corpuscular HGB Conc 33.8 % (30-36); Mean Corpuscular Hemoglobin 30.0 PG (26-34); Mean Corpuscular Volume 88.7 fL (80-100); Platelet Count 251 X10^3/uL (150-400)
[2024-09-09 11:32] LABS: Alanine Aminotransferase 14 IU/L (<35); Albumin 3.1 g/dL (3.5-5.0); Albumin Globulin Ratio 0.9 (1.0-2.8); Alkaline Phosphatase 145 U/L (38-126); Blood Urea Nitrogen 6 mg/dL (7-17); Calcium 8.7 mg/dL (8.4-10.2); Carbon Dioxide 17 mmol/L (22-32); Chloride 109 mmol/L (98-107); Estimated Glomerular Filt Rate > 60 mL/min (>60); Globulin 3.3 g/dL (1.7-4.1); Glucose 92 mg/dL (70-99); HEMOLYSIS 32 (0-50); Potassium 4.3 mmol/L (3.4-5.1); Sodium 131 mmol/L (137-145); Total Protein 6.4 g/dL (6.3-8.2); Uric Acid 4.8 mg/dL (2.5-6.2)
[2024-09-09 11:54] LABS: Protein (Total) Urine Random 10 mg/dL (0-12); Protein Creatinine Ratio Urine 0.15 GRAM/24H
== END 2024-09-09 12:54 | disposition home or self-care (01) ==
PROVIDERS: Admitting Provider Obstetrics & Gynecology; PCP Nurse Practitioner; Referring Provider Obstetrics & Gynecology; Visit Provider Obstetrics & Gynecology
DX: Z34.83 Encounter for supervision of other normal pregnancy, third trimester (principal); Z3A.36 36 weeks gestation of pregnancy; Z87.59 Personal history of other complications of pregnancy, childbirth and the puerperium
CPT/HCPCS: 36415; 59025; 80053; 84550; 85025; G0378; G0379

== ENCOUNTER 2024-09-15 17:05 | Outpatient (CLI) | payer OTHER, SELFPAY ==
[2024-09-15 18:27] LABS: Add Manual Diff / Slide Review NO; Hematocrit 34.3 % (36-46); Hemoglobin 11.7 g/dL (12.0-16.0); Lymphocytes Absolute Auto 2100 /uL (1100-4500); Mean Corpuscular HGB Conc 34.2 % (30-36); Mean Corpuscular Hemoglobin 30.5 PG (26-34); Mean Corpuscular Volume 89.2 fL (80-100); Platelet Count 209 X10^3/uL (150-400)
[2024-09-15 18:33] LABS: Alanine Aminotransferase 14 IU/L (<35); Albumin 3.3 g/dL (3.5-5.0); Albumin Globulin Ratio 1.0 (1.0-2.8); Alkaline Phosphatase 160 U/L (38-126); Blood Urea Nitrogen 7 mg/dL (7-17); Calcium 8.5 mg/dL (8.4-10.2); Carbon Dioxide 21 mmol/L (22-32); Chloride 107 mmol/L (98-107); Estimated Glomerular Filt Rate > 60 mL/min (>60); Globulin 3.3 g/dL (1.7-4.1); Glucose 90 mg/dL (70-99); HEMOLYSIS < 15 (0-50); Potassium 4.1 mmol/L (3.4-5.1); Sodium 134 mmol/L (137-145); Total Protein 6.6 g/dL (6.3-8.2); Uric Acid 5.0 mg/dL (2.5-6.2)
== END 2024-09-15 19:04 | disposition home or self-care (01) ==
LOC: OB 09-16 09:03
PROVIDERS: PCP Nurse Practitioner; Referring Provider Obstetrics & Gynecology; Visit Provider Obstetrics & Gynecology
DX: Z34.83 Encounter for supervision of other normal pregnancy, third trimester (principal); Z87.59 Personal history of other complications of pregnancy, childbirth and the puerperium; Z3A.37 37 weeks gestation of pregnancy
CPT/HCPCS: 36415; 59025; 59050; 80053; 84550; 85025; G0378; G0379

== ENCOUNTER 2024-09-18 09:41 | Observation (INO) | payer OTHER, SELFPAY ==
[2024-09-18 10:54] LABS: Add Manual Diff / Slide Review NO; Hematocrit 35.4 % (36-46); Hemoglobin 12.3 g/dL (12.0-16.0); Lymphocytes Absolute Auto 1900 /uL (1100-4500); Mean Corpuscular HGB Conc 34.8 % (30-36); Mean Corpuscular Hemoglobin 30.7 PG (26-34); Mean Corpuscular Volume 88.2 fL (80-100); Platelet Count 245 X10^3/uL (150-400)
[2024-09-18 10:58] LABS: Alanine Aminotransferase 14 IU/L (<35); Albumin 3.5 g/dL (3.5-5.0); Albumin Globulin Ratio 1.1 (1.0-2.8); Alkaline Phosphatase 173 U/L (38-126); Blood Urea Nitrogen 6 mg/dL (7-17); Calcium 9.8 mg/dL (8.4-10.2); Carbon Dioxide 20 mmol/L (22-32); Chloride 106 mmol/L (98-107); Estimated Glomerular Filt Rate > 60 mL/min (>60); Globulin 3.3 g/dL (1.7-4.1); Glucose 81 mg/dL (70-99); HEMOLYSIS < 15 (0-50); Potassium 4.2 mmol/L (3.4-5.1); Sodium 133 mmol/L (137-145); Total Protein 6.8 g/dL (6.3-8.2); Uric Acid 5.5 mg/dL (2.5-6.2)
[2024-09-18 11:12] LABS: Protein (Total) Urine Random 14 mg/dL (0-12); Protein Creatinine Ratio Urine 0.12 GRAM/24H
--- NOTE | 2024-09-18 13:38 | P.TNLD_ITS ---
Visit Information Visit Information Date of evaluation: 09/18/24 Primary OB Provider: Ofelia Estrella On-call OB Provider: Gisell Radford Reason for Evaluation: Yes other Comments/Additional reasons for admission: This is a 33 yo at 37w4d here for elevated blood pressures. Patient has a hx of pre-eclampsia in prior . She noted elevated BP this morning on home cuff of systolic 150. She denies headaches, RUQ pain, new or worsening swelling. Good movement, no contractions. [facility] Medical History (Updated 07/28/24 @ 08:09 by Ofelia Estrella MD) Hyperemesis gravidarum Gestational hypertension Depression Anxiety Ovarian cyst Kidney stones Stomach pain Nausea Scoliosis Surgical History (Updated 02/07/24 @ 14:10 by Lisa Shine, FELIX) [place] teeth extracted Family History (Updated 02/07/24 @ 14:15 by Lisa Shine RN) Mother Family estrangement No known health problems Depression Bipolar 1 disorder Mental health disorder Father Obesity Kidney disease Pre-diabetes Grandfather No known health problems Family estrangement Abusive behavior Grandmother No known health problems Family estrangement Grandfather Diabetes mellitus Hyperlipidemia Hypertension Myocardial infarction Obesity Heart valve replaced Grandmother Leukemia, acute Aunt Breast cancer Brother Extra toe Obesity Alcohol abuse Aunt Pancreatic cancer Social History marital status: number of children: 1 household members: spouse and children lives independently: Yes caregiver/support person: No housing: house pets and animals: Yes (X 2 dogs) education level: vocational occupational status: unemployed current occupational exposures/hazards: Yes Previous occupational history: Hairdresser special kamran needs: No travel history: recent ([place]) seatbelt use: always helmet use: No water heater temp set < 120 deg: Yes working smoke detector in home: Yes fire extinguisher in home: Yes carbon monox detector in home: Yes firearms in home: Yes firearms unloaded and locked: Yes do you feel safe at home: Yes second hand exposure: No alcohol intake: former (rarely when not ) substance use type: does not use and marijuana (not while /) during the past year weight has: remained stable well-balanced diet: daily or most days daily servings fruits/ve or more times/day (vegan diet) caffeine: Yes (AM cup coffee, though not tolerating recently) Objective Labs 09/18/24 10:20 09/18/24 10:20 Labs: Laboratory Results - last 24 hr 09/18/24 10:20 WBC 8.7 RBC 4.01 Hgb 12.3 Hct 35.4 L MCV 88.2 MCH 30.7 MCHC 34.8 RDW 13.2 Plt Count 245 Neut % (Auto) 71.5 Lymph % (Auto) 21.3 L [place] % (Auto) 5.1 Eos % (Auto) 1.7 L Baso % (Auto) 0.4 Neut # (Auto) 6200 Lymph # (Auto) 1900 [place] # (Auto) 400 Eos # (Auto) 100 Baso # (Auto) 0 Sodium 133 L Potassium 4.2 Chloride 106 Carbon Dioxide 20 L BUN 6 L Creatinine 0.63 Estimated GFR > 60 BUN/Creatinine Ratio 9.5 Glucose 81 Uric Acid 5.5 Calcium 9.8 Total Bilirubin 0.4 AST 33 ALT 14 Alkaline Phosphatase 173 H Total Protein 6.8 Albumin 3.5 Globulin 3.3 Albumin/Globulin Ratio 1.1 U Random Total Protein 14 H Urine Creatinine 113.86 Protein/Creatinin Ratio 0.12 Blood Type O Positive Antibody Screen Negative Evaluation Evaluation Baseline heart rate: 140 Variability: Moderate (6-25) monitor accelerations: Present Monitor Decelerations: Absent Category of Tracing: Reactive Diagnosis, Plan/Disposition Plan/Disposition Plan: 33 yo at 37w4d here for concern of elevated blood pressures. Blood pressures taken over 4 hour period with a few elevated diastolics in the 90s. One pressure of 147 systolic that was not sustained. Pre-eclampsia work up negative. P/C ratio wnl. Discussed with primary OB, Dr Estrella, recommends IOL on Friday 09/22 with NST and BP check in 2 days. Patient agreeable. OB Disposition: home
== END 2024-09-18 13:45 | disposition home or self-care (01) ==
PROVIDERS: Admitting Provider Obstetrics & Gynecology; PCP Nurse Practitioner; Referring Provider Obstetrics & Gynecology; Visit Provider Obstetrics & Gynecology
DX: O26.893 Other specified pregnancy related conditions, third trimester (principal); R03.0 Elevated blood-pressure reading, without diagnosis of hypertension; Z87.59 Personal history of other complications of pregnancy, childbirth and the puerperium; Z3A.37 37 weeks gestation of pregnancy
CPT/HCPCS: 36415; 59025; 59050; 80053; 84550; 85025; 86850; 86900; 86901; G0378; G0379

== ENCOUNTER 2024-09-20 08:57 | Outpatient (CLI) | payer OTHER, SELFPAY ==
--- NOTE | 2024-09-20 09:58 | P.TNLD_ITS ---
Visit Information Visit Information Date of evaluation: 09/20/24 Primary OB Provider: Ofelia Estrella Reason for Evaluation: Yes non-stress test non-stress test reason: hypertension/pre-eclampsia Comments/Additional reasons for admission: 33 yo at 37w6d for scheduled NST for elevated blood pressures with history of preeclampsia in prior . Was seen in triage 2 days ago and found to have elevated blood pressures at that time. No pre-E sx today PFSH Medical History (Updated 07/28/24 @ 08:09 by Ofelia Estrella MD) Hyperemesis gravidarum Gestational hypertension Depression Anxiety Ovarian cyst Kidney stones Stomach pain Nausea Scoliosis Surgical History (Updated 02/07/24 @ 14:10 by Lisa Shine, RN) [place] teeth extracted Family History (Updated 02/07/24 @ 14:15 by Lisa Shine RN) Mother Family estrangement No known health problems Depression Bipolar 1 disorder Mental health disorder Father Obesity Kidney disease Pre-diabetes Grandfather No known health problems Family estrangement Abusive behavior Grandmother No known health problems Family estrangement Grandfather Diabetes mellitus Hyperlipidemia Hypertension Myocardial infarction Obesity Heart valve replaced Grandmother Leukemia, acute Aunt Breast cancer Brother Extra toe Obesity Alcohol abuse Aunt Pancreatic cancer Social History marital status: number of children: 1 household members: spouse and children lives independently: Yes caregiver/support person: No housing: house pets and animals: Yes (X 2 dogs) education level: vocational occupational status: unemployed current occupational exposures/hazards: Yes Previous occupational history: Hairdresser special kamran needs: No travel history: recent ([place]) seatbelt use: always helmet use: No water heater temp set < 120 deg: Yes working smoke detector in home: Yes fire extinguisher in home: Yes carbon monox detector in home: Yes firearms in home: Yes firearms unloaded and locked: Yes do you feel safe at home: Yes second hand exposure: No alcohol intake: former (rarely when not ) substance use type: does not use and marijuana (not while /) during the past year weight has: remained stable well-balanced diet: daily or most days daily servings fruits/ve or more times/day (vegan diet) caffeine: Yes (AM cup coffee, though not tolerating recently) Exam Vital Signs (past 8 hours): Blood pressure: 135/88, 135/84, 137/87, 133/84 Pulse 78 Temp 36.7?C Evaluation Evaluation Baseline heart rate: 150 Variability: Moderate (6-25) monitor accelerations: Present Monitor Decelerations: Absent Contraction Frequency (minutes): 0 Category of Tracing: Reactive Diagnosis, Plan/Disposition Plan/Disposition Plan: 33 yo at 37w6d for scheduled NST for elevated blood pressures with history of preeclampsia in prior . Was seen in triage 2 days ago and found to have elevated blood pressures at that time. No pre-E sx today. Blood pressures today are similar to that visit. NST reassuring. Scheduled for medical induction of labor on 09/22. Patient discharged home with return precautions. OB Disposition: home
== END 2024-09-20 10:30 | disposition home or self-care (01) ==
LOC: LABOR 10:53 → OB 09-22 08:40
PROVIDERS: PCP Nurse Practitioner; Referring Provider Obstetrics & Gynecology; Visit Provider Obstetrics & Gynecology
DX: O26.893 Other specified pregnancy related conditions, third trimester (principal); R03.0 Elevated blood-pressure reading, without diagnosis of hypertension; Z3A.37 37 weeks gestation of pregnancy; Z87.59 Personal history of other complications of pregnancy, childbirth and the puerperium
CPT/HCPCS: 59025; G0378; G0379

== ENCOUNTER 2024-09-22 07:06 | Inpatient (IN) | payer OTHER, SELFPAY ==
--- NOTE | 2024-09-22 07:46 | P.HPOB_ITS ---
OB HPI Date/Time Date of admission: 09/22/24 Date Patient Seen: 09/22/24 Time Patient Seen: 07:46 History of Present Condition Chief complaint: INDUCTION MARITZA Calculator Estimated Delivery Date Method Current WG Current Estimate 10/05/24 LMP (Certain) 38w 1d Other Estimates 10/05/24 Ultrasound #1 38w 1d Estimated Gestational Age (weeks): 38+1 : 2 Para: 1 care: good care, initiated at week # (8), number of visits (10) and pounds weight gain (39) Dating criteria OB: LMP confirmed by 1st trimester US Ultrasounds: normal 1st trimester US and normal mid trimester US Obstetrical complications: gestational hypertension and hyperemesis Indications Indication for induction OB: gestational HTN/pre-eclampsia Preadmission Labs Last OB Lab Results: Blood Type O Positive 09/18/24, 10:20 Antibody Screen Negative 09/18/24, 10:20 Hct, (36-46) 35.4 % L 09/18/24, 10:20 Hgb, (12.0-16.0) 12.3 g/dL 09/18/24, 10:20 Hep Bs Antigen, (NEGATIVE) Negative s/c 03/10/24, 10: 50 Hepatitis C Antibody, (NEGATIVE) Negative s/c 5, 10:50 Rubella Antibody, (>15) 51.1 IU/mL 03/10/24, 10:50 VZV IgG Antibody, (Non Reactive) Reactive 5, 10:50 Glucose 1 Hr 50 gm, (76-139) 125 mg/dL 06/26/24, 1 3:24 Group B Strep (PCR) Neg for grp b strep 09/15/24, 16:35 -: Chlamydia screen: negative, Gonorrhea screen: negative and Urine: negative -: PAP smear: Normal External Labs -: Urine: negative Prior (ies) Past Pregnancies Del. Date GA/Weeks Labor Lgth Wt Sex Route Outcome Anesthesia Place Delv Breastfeed Preg Comp Name 03/31/20 38.3 11 5 lb 14 oz Male vaginal live - full te [facility] 3 1/2 years [place] Delivery Date: 03/31/20 Last Updated by: Ofelia Estrella MD Induced d/t GHTN Evaluation Evaluation Baseline heart rate: 135 Variability: Moderate (6-25) monitor accelerations: Present Monitor Decelerations: Absent Status: Category l Dilation (cm): 1 Effacement (%): 80 Dilation: 1-2 cm Effacement: >/=80% station: -1 Position of cervix: mid Consistency: soft Doshi score: 9 [facility] Medical History (Updated 09/21/24 @ 21:22 by Ofelia Estrella MD) Hyperemesis gravidarum Gestational hypertension Depression Anxiety Ovarian cyst Kidney stones Stomach pain Nausea Scoliosis Surgical History (Updated 02/07/24 @ 14:10 by Lisa Shine RN) [place] teeth extracted Family History (Updated 02/07/24 @ 14:15 by Lisa Shine RN) Mother Family estrangement No known health problems Depression Bipolar 1 disorder Mental health disorder Father Obesity Kidney disease Pre-diabetes Grandfather No known health problems Family estrangement Abusive behavior Grandmother No known health problems Family estrangement Grandfather Diabetes mellitus Hyperlipidemia Hypertension Myocardial infarction Obesity Heart valve replaced Grandmother Leukemia, acute Aunt Breast cancer Brother Extra toe Obesity Alcohol abuse Aunt Pancreatic cancer Social History marital status: number of children: 1 household members: spouse and children lives independently: Yes caregiver/support person: No housing: house pets and animals: Yes (X 2 dogs) education level: vocational occupational status: unemployed current occupational exposures/hazards: Yes Previous occupational history: Hairdresser special kamran needs: No travel history: recent ([place]) seatbelt use: always helmet use: No water heater temp set < 120 deg: Yes working smoke detector in home: Yes fire extinguisher in home: Yes carbon monox detector in home: Yes firearms in home: Yes firearms unloaded and locked: Yes do you feel safe at home: Yes second hand exposure: No alcohol intake: former (rarely when not ) substance use type: does not use and marijuana (not while /) during the past year weight has: remained stable well-balanced diet: daily or most days daily servings fruits/ve or more times/day (vegan diet) caffeine: Yes (AM cup coffee, though not tolerating recently) Meds Home Medications and Allergies Home Medications ?Medication ?Instructions ?Recorded ?Confirmed ?Type mecobalamin (vitamin B12) 10,000 10,000 mcg IM .28 day s 08/18/19 09/15/24 History mcg solution for injection prenat.vits,carmen,[id number] 1 tab PO DAILY 08/18/19 09/15/24 History metoclopramide HCl 10 mg tablet 10 mg PO Q6H PRN nause a and 03/03/24 09/15/24 Rx (Reglan) vomiting #30 tabs promethazine 25 mg tablet 25 mg PO TID PRN nausea #30 tabs 03/04/24 09/15/24 Rx omeprazole 20 mg capsule,delayed 20 mg PO DAILY #30 ca ps 05/13/24 09/15/24 Rx release pantoprazole 40 mg tablet,delayed 40 mg PO DAILY #30 t abs 07/24/24 09/15/24 Rx release (Protonix) Allergies Allergy/AdvReac Type Severity Reaction Status Date / Time kiwi Allergy Intermediate Rash Verified 09/15/24 16:50 OB Exam Narrative Exam Narrative: Generally: Patient is sitting up in bed, no acute distress Lungs: Clear to auscultation bilaterally Cardiovascular: Regular rate and rhythm Fundal height: 38 cm Estimated weight 6-1/2 lb Extremities: 1+ edema, 1+ DTRs, no clonus Assessment and Plan Assessment and Plan Assessment and Plan narrative: Assessment: 33-year-old 2 para 1 at 38-,1/7 weeks gestation with gestational hypertension for induction of labor Favorable cervix Plan: Pitocin per protocol Epidural as necessary Expectant management to spontaneous vaginal delivery Time-Based Coding :: [TOTAL MINUTES] spent with patient and on the chart (including review of chart, obtaining history, exam, reviewing outside data, placing orders, documenting exam and treatment plan, and counseling patient) on [DATE].
[2024-09-22] MEDS: ACETAMINOPHEN 325 MG TABLET 975 MG PO ×2 (07:55→15:24)
[2024-09-22] MEDS: LACTATED RINGERS 1,000 ML 100 ML IV ×2 (07:55→13:19)
[2024-09-22] MEDS: OXYTOCIN PREMIX 30 UNIT/500 ML PLAST..BAG IV (08:05)
[2024-09-22 08:12] LABS: Add Manual Diff / Slide Review NO; Hematocrit 34.6 % (36-46); Hemoglobin 11.9 g/dL (12.0-16.0); Lymphocytes Absolute Auto 2000 /uL (1100-4500); Mean Corpuscular HGB Conc 34.4 % (30-36); Mean Corpuscular Hemoglobin 30.3 PG (26-34); Mean Corpuscular Volume 88.1 fL (80-100); Platelet Count 232 X10^3/uL (150-400)
[2024-09-22 08:23] LABS: Alanine Aminotransferase 13 IU/L (<35); Albumin 3.2 g/dL (3.5-5.0); Albumin Globulin Ratio 1.0 (1.0-2.8); Alkaline Phosphatase 152 U/L (38-126); Blood Urea Nitrogen 11 mg/dL (7-17); Calcium 9.2 mg/dL (8.4-10.2); Carbon Dioxide 24 mmol/L (22-32); Chloride 106 mmol/L (98-107); Estimated Glomerular Filt Rate > 60 mL/min (>60); Globulin 3.1 g/dL (1.7-4.1); Glucose 93 mg/dL (70-99); HEMOLYSIS 16 (0-50); Potassium 4.4 mmol/L (3.4-5.1); Sodium 134 mmol/L (137-145); Total Protein 6.3 g/dL (6.3-8.2); Uric Acid 6.2 mg/dL (2.5-6.2)
[2024-09-22 08:48] VITALS: BP 137/93
[2024-09-22] MEDS: PANTOPRAZOLE DR 40 MG TABLET PO (08:55)
[2024-09-22] MEDS: CALCIUM CARBONATE 500 MG TAB 1000 MG PO ×2 (09:00→11:45)
[2024-09-22] MEDS: OXYCODONE IR 5 MG TABLET PO (10:07)
--- NOTE | 2024-09-22 11:39 | PM.OBPNLAB ---
Date/Time Date Patient Seen: 09/22/24 Time Patient Seen: 11:40 Pain Control Pain control: tolerating well Comments: BP's 130's/90's Pelvic Exam Dilation (cm): 3 Effacement (%): 80 station: -1 Amniotic membrane status: Intact Contractions Contractions on admission: none Pitocin rate (mU/min): 14 Contraction frequency (min): 3 Contraction duration (min): 1 Contraction pattern: Regular Contraction intensity: Mild Status status: Category l Heart Rate Baseline: 135 Monitor Accelerations: Present Monitor Decelerations: Absent Monitor Variability: Moderate Assessment and Plan Assessment: induction ongoing Comments: AROM with copious clear amniotic fluid Epidural prn Expectant management to
--- NOTE | 2024-09-22 15:06 | PM.AN.REGBLK ---
Regional Block Pre-procedure Procedure: Continuous Lumbar Epidural for L&D Attending OB provider: Ofelia Estrella PMH/ROS narrative: 38 1/7 weeks, IOL for GHTN. Ruptured, labor progressing on pitocin gtt requesting epidural. Significant GERD with this and preexisting depression/anxiety. Also states she has scoliosis and an extra vertebrae but had successful epidural with previous delivery. PSH/Anesthesia history narrative: none Exam narrative: Mall I, good dentition ASA Class: II Labs: Hct 34.6 % (36-46) L 09/22/24 07:55 Plt Count 232 X10^3/uL (150-400) 09/22/24 07:55 Medications: Current Medications Generic Name Dose Route Start Last Admin Trade Name Freq PRN Reason Stop Dose Admin Acetaminophen 975 mg 09/22/24 15:03 Acetaminophen 325 Mg Tablet PO Q8H PRN Pain, Mild (1-3) Calcium Carbonate 1,000 mg 09/22/24 07:35 09/22/24 11:45 Calcium Carbonate 500 Mg Tab PO 1,000 mg Q2HR PRN Administration Dyspepsia Carboprost Tromethamine 250 mcg 09/22/24 07:35 Carboprost 250 Mcg/Ml Ampul IM Q90M PRN Bleeding Diphenhydramine HCl 25 mg 09/22/24 13:40 Diphenhydramine 50 Mg/Ml Vial IV Q10M PRN Pruritis Ephedrine Sulfate 10 mg 09/22/24 13:40 Ephedrine 50 Mg/Ml Vial IV Q5M PRN Blood pressure decrease more than 20% of baseline. Fentanyl 50 mcg 09/22/24 07:35 Fentanyl 100 Mcg/2 Ml Inj IV Q1H PRN Pain, Moderate (4-6) Oxytocin/Lactated Ringer's 30 unit in 500 mls @ 2 mls/hr 09/22/24 07:45 09/22/24 08:05 Oxytocin Premix IV 2 milliunit/min TITRATE TANK 2 mls/hr Protocol Administration 2 MILLIUNIT/MIN Lactated Ringer's 1,000 mls @ 100 mls/hr 09/22/24 07:45 09/22/24 13:19 Lactated Ringers IV 09/22/24 17:44 100 mls/hr CONT TANK Administration Oxytocin/Lactated Ringer's 30 unit in 500 mls @ 200 mls/hr 09/22/24 07:35 Oxytocin Premix IV CONT PRN Bleeding Protocol Tranexamic Acid 1,000 mg/ 100 mls @ 600 mls/hr 09/22/24 07:35 Sodium Chloride IV NOW PRN Bleeding FENT 2MCG/ML BUPIV 0.125% EPI 200 mcg in 100 mls @ 10 mls/hr 09/22/24 13:45 Fentanyl/Bupiv/Ns 2mcg/Ml - 0.125% EPIDURAL CONT TANK Lidocaine HCl 20 ml 09/22/24 07:35 Lidocaine 1% 20 Ml INJ INTRA-OP PRN Post Delivery Methylergonovine Maleate 0.2 mg 09/22/24 07:35 Methylergonovine 0.2 Mg/Ml Vial IM NOW PRN Bleeding Methylergonovine Maleate 0.2 mg 09/22/24 07:35 Methylergonovine 0.2 Mg Tablet PO Q6HR PRN Heavy Bleeding Mineral Oil 30 ml 09/22/24 07:35 Mineral Oil 30 Ml Udc TOP PRN PRN Version Misoprostol 400 mcg 09/22/24 07:35 Misoprostol 200 Mcg Tablet SL NOW PRN Bleeding Misoprostol 800 mcg 09/22/24 07:35 Misoprostol 200 Mcg Tablet VA NOW PRN Bleeding Nalbuphine HCl 2.5 mg 09/22/24 13:40 Nalbuphine 20 Mg/Ml Ampul IV Q10M PRN Pruritis Naloxone HCl 0.2 mg 09/22/24 07:35 Naloxone 0.4 Mg/Ml Vial IV Q2MIN PRN Opiate Reversal Ondansetron HCl 4 mg 09/22/24 07:35 Ondansetron 4 Mg/2 Ml Inj IV Q4HR PRN Nausea And Vomiting Oxybutynin 5 mg 09/22/24 09:52 Oxybutynin 5 Mg Tablet PO Q4HR PRN Pain, Moderate (4-6) Oxytocin 10 unit 09/22/24 07:35 Oxytocin 10 Unit/Ml Vial IM NOW PRN Bleeding Pantoprazole Sodium 40 mg 09/22/24 07:00 09/22/24 08:[address] 40 Mg Tablet PO 40 mg 0700,2100 PRN Administration Acid reflux Allergies: Allergies Allergy/AdvReac Type Severity Reaction Status Date / Time kiwi Allergy Intermediate Rash Verified 09/22/24 08:50 Procedure Insertion date: 09/22/24 Insertion time: 13:12 Prep/Local: 1% lidocaine (Chlorhex skin prep, dry x 3 min) Interspace: L4-5 Patient position: sitting Needle: 17 gauge Tuohy Loss of resistance with: saline LATRICE at (cm): 7 Catheter placed at SKIN (cm): 14 Catheter in SPACE (cm): 7 Sensory level: T10 Insertion: No CSF, No Blood, No Paresthesia with insertion, No Paresthesia with injection and No Test dose reaction Initial Medications TEST DOSE time: 13:22 BOLUS DOSE time: 13:33 BOLUS DOSE (mL): 7 BOLUS DOSE med: other (pump solution ) Infusion INFUSION: 0.125% bupivacaine and with fentanyl 2 mcg/mL Initial rate (mL/hr): 10 Post-procedure Anesthesia date START: 09/22/24 Anesthesia time START: 13:12 Anesthesia date END: 09/22/24 Anesthesia time END: 18:58 Post-procedure Anesthesia Assessment: Yes CV function: HR/BP stable, Yes Resp function: RR/sat/airway adequate, Yes Post-op hydration adequate, Yes Pain control adequate, Yes Nausea & vomiting absent, Yes Temperature > 36 C, Yes Mental status appropriate and Yes Anesthesia complications
[2024-09-22] MEDS: ONDANSETRON 4 MG/2 ML INJ IV (15:39)
--- NOTE | 2024-09-22 19:18 | PM.OBPNLAB ---
Date/Time Date Patient Seen: 09/22/24 Time Patient Seen: 17:30 Pain Control Pain control: epidural Pelvic Exam Dilation (cm): 7 Effacement (%): 100 station: -1 Amniotic membrane status: Intact Contractions Contractions on admission: none Pitocin rate (mU/min): 18 Contraction frequency (min): 3 Contraction pattern: Regular Contraction intensity: Strong/Firm Status status: Category l Heart Rate Baseline: 135 Monitor Accelerations: Present Monitor Decelerations: Absent Monitor Variability: Moderate Assessment and Plan Assessment: active labor Plan: continuous present management Comments: Expectant management to
--- NOTE | 2024-09-22 19:19 | P.PCNOB_ITS ---
Events: Induced HTN Labor & Delivery Delivery date: 09/22/24 Delivery Time: 18:57 Cervical ripening method: none Induction method: per pitocin protocol Delivery augmentation: rupture of membranes Delivery monitor: external FHT and external uterine Route of delivery: Episiotomy description: None L&D Laceration Description: None Anesthesia Type: Epidural Complications: None Narrative: Patient complete and pushed for 20 minutes. At 6:57 p.m., a live female infant delivered spontaneously in the MARCY presentation, over an intact perineum. The remainder of the body delivered without difficulty and was placed on mom's abdomen. The cord was double clamped and cut after the cord stopped pulsing. Pitocin was given in the IV fluids. The placenta delivered intact with a three-vessel cord at 7:07 p.m.. The fundus was massaged to firm. Perineum and vagina were inspected and there were no lacerations noted. Lap and 4 x 4 count correct. Instrument count correct. . Epidural analgesia. Mom and stable to recovery. BW 6 # 13.4 oz. Apgars 7 at 1 minute and 9 at 5 minutes. [place] Baby 1: Infant gender: Female Presentation: vertex Position: Left Occiput Anterior Placenta delivery description: Spontaneous Cord Vessel Description: 3 Vessels and Clamped/Cut (after cord stopped pulsing) score (1 min): 7 score (5 min): 9 weight: 6 lb 13.4 oz Plan for aftercare: Routine care
[2024-09-22] MEDS: ACETAMINOPHEN 325 MG TABLET 650 MG PO (21:40)
[2024-09-22] MEDS: NIFEdipine 30 MG TAB ER PO (21:40)
[2024-09-22] MEDS: DERMOPLAST SPRAY 20% 60 ML 1 SPRAY TOP (21:41)
[2024-09-22] MEDS: LANOLIN OINT 7 GM 1 APPLIC TOP (21:41)
[2024-09-22] MEDS: IBUPROFEN 600 MG TABLET PO (23:57)
[2024-09-23] MEDS: ACETAMINOPHEN 325 MG TABLET 650 MG PO ×2 (04:27→12:45)
[2024-09-23] MEDS: IBUPROFEN 600 MG TABLET PO (06:08)
[2024-09-23 06:44] LABS: Hematocrit 32.8 % (36-46); Hemoglobin 11.3 g/dL (12.0-16.0)
[2024-09-23 09:15] VITALS: BP 131/88; PULSE 76; RESP 18; TEMP 36.8; O2SAT 97
[2024-09-23] MEDS: NIFEdipine 30 MG TAB ER PO (09:18)
[2024-09-23 17:30] VITALS: BP 131/88; PULSE 76; RESP 18; TEMP 36.8
--- NOTE | 2024-09-23 21:14 | P.DS_ITS ---
Discharge Providers Provider Date of admission: 09/22/24 07:06 Discharge Date: 09/23/24 Primary care physician: SPENCER Moon Consults: 09/22/24 07:35 Consult to Anesthesiology Urgent Comment: Consulting Provider: Anesthesiologist Reason for consultation: Epidural Has provider been notified: No 09/22/24 21:09 Consult to Sales Agent Pest Control Service Routine Comment: Discharge provider: Ofelia Estrella MD Summary Hospital Course Date Patient Seen: 09/23/24 Time Patient Seen: 08:10 Diagnoses: 37-2/7 weeks gestation Gestational hypertension Persistent headache Spontaneous vaginal delivery Epidural analgesia Pitocin induction of labor Meconium-stained amniotic fluid Hospital Course: Patient is a 33-year-old 2 para 2 who presented on September 22, 2024 for a scheduled induction of labor due to a persistent headache with gestational hypertension. She was started on Pitocin. Artificial rupture of membranes was performed late morning. She received an epidural for pain management. She progressed to complete dilation and had a spontaneous vaginal delivery without complication. course was complicated by some mildly elevated blood pressures. She was started on nifedipine XL 30 and these were well controlled. No further headaches after delivery. Peripartum Data Infant Delivery Method: Natural Vaginal Laceration Description: None Episiotomy description: None Procedures: Pitocin induction of labor Artificial rupture of membranes Epidural analgesia Spontaneous vaginal delivery complications: none [place] 1: Gender: Female Disposition of : home Status at Discharge Cognitive/behavioral status at discharge: oriented Functional status at discharge: independent ambulation Overall status at discharge: patient is progressing back to baseline Time Spent with Patient Time attestation: Total time spent providing and/or coordinating discharge services: Time spent: Less than 30 minutes Objective Labs 09/23/24 06:32 09/22/24 07:55 Labs: Laboratory Results - last 24 hr 09/23/24 06:32 Hgb 11.3 L Hct 32.8 L Exam Vital Signs (past 8 hours): - 09/23/24 17:30 Temperature 98.2 F Pulse Rate 76 Respiratory Rate 18 Blood Pressure 131/88 Narrative Exam Narrative: Generally: Patient is sitting up in bed, no acute distress Fundus: Firm at U -1 Extremities: 1+ edema, negative Homans, 1+ DTRs, negative clonus Discharge Plan Discharge Plan Patient Disposition: Home Provider Discharge Comment: Call with fever, chills, or bleeding vaginally more than a pad in an hour Ibuprofen 600 mg every 6 hours as needed for cramping Tylenol 650 mg every 6 hours as needed Push oral fluids Discharge orders & Medications Prescriptions: New nifedipine 30 mg tablet extended release 30 mg PO BID Qty: 60 0RF Continued prenat.vits,carmen,[id number] Tablet 1 tab PO DAILY mecobalamin (vitamin B12) 10,000 mcg recon soln 10,000 mcg IM .28 days Discontinued omeprazole 20 mg capsule,delayed release(DR/EC) 20 mg PO DAILY Qty: 30 2RF pantoprazole [Protonix] 40 mg tablet,delayed release (DR/EC) 40 mg PO DAILY Qty: 30 1RF Follow up/Referrals: Ofelia Estrella MD [Physician, TAX COMPLIANCE OFFICER] - 10/02/24 9:30 am Referral Note: Please arrive 15 minutes early for Appts. BP check on 10/02/24 at 09:30AM with Dr. Estrella. 6 week follow up at 10:30AM with Dr. Hill Diet/Activity/Treatments Diet: Regular Activity: Nothing in the vagina for 6 weeks Skin/Wound/Dressing Care Report to your healthcare provider any signs of infection, such as:: chills, fever, increased pain and unusual drainage Visit Report/Discharge Packet Instructions: DI for Labor and Delivery, Vaginal , DI for Depression, Gestational Hypertension Stand Alone Forms: Patient Portal/API, Stroke Signs & Symptoms Discharge Data Primary Care Provider: Lizeth Patel
== END 2024-09-23 17:45 | disposition home or self-care (01) | DRG 560 ==
PROVIDERS: Admitting Provider Obstetrics & Gynecology; PCP Nurse Practitioner; Referring Provider Obstetrics & Gynecology; Visit Provider Obstetrics & Gynecology
DX: O13.4 Gestational [pregnancy-induced] hypertension without significant proteinuria, complicating childbirth (principal); Z3A.38 38 weeks gestation of pregnancy; Z37.0 Single live birth; O99.344 Other mental disorders complicating childbirth; F41.8 Other specified anxiety disorders; O99.892 Other specified diseases and conditions complicating childbirth; Q67.5 Congenital deformity of spine; R51.9 Headache, unspecified; O99.62 Diseases of the digestive system complicating childbirth; K21.9 Gastro-esophageal reflux disease without esophagitis
CPT/HCPCS: 36415; 59050; 80053; 84550; 85014; 85018; 85025; 86850; 86900; 86901; G0379; J2405; J2590

== ENCOUNTER → 2024-10-02 10:20 | Outpatient (CLI) | payer OTHER, SELFPAY ==
[2024-10-02 11:04] LABS: Add Manual Diff / Slide Review NO; Hematocrit 40.1 % (36-46); Hemoglobin 13.9 g/dL (12.0-16.0); Lymphocytes Absolute Auto 2200 /uL (1100-4500); Mean Corpuscular HGB Conc 34.5 % (30-36); Mean Corpuscular Hemoglobin 30.8 PG (26-34); Mean Corpuscular Volume 89.2 fL (80-100); Platelet Count 404 X10^3/uL (150-400)
[2024-10-02 11:27] LABS: Alanine Aminotransferase 21 IU/L (<35); Albumin 3.9 g/dL (3.5-5.0); Albumin Globulin Ratio 1.3 (1.0-2.8); Alkaline Phosphatase 115 U/L (38-126); Blood Urea Nitrogen 16 mg/dL (7-17); Calcium 9.3 mg/dL (8.4-10.2); Carbon Dioxide 23 mmol/L (22-32); Chloride 106 mmol/L (98-107); Estimated Glomerular Filt Rate > 60 mL/min (>60); Globulin 3.0 g/dL (1.7-4.1); Glucose 97 mg/dL (70-99); HEMOLYSIS < 15 (0-50); Potassium 5.1 mmol/L (3.4-5.1); Sodium 139 mmol/L (137-145); Total Protein 6.9 g/dL (6.3-8.2)
== END ==
PROVIDERS: PCP Nurse Practitioner; Referring Provider Obstetrics & Gynecology; Visit Provider Obstetrics & Gynecology
DX: O13.3 Gestational [pregnancy-induced] hypertension without significant proteinuria, third trimester (principal)
CPT/HCPCS: 36415; 80053; 85025